=== PATIENT | female | born 1955 | race Caucasian/White ===

== ENCOUNTER → 2019-01-16 | Emergency (ER) | payer MEDICAID ==
[~2019-01-16] VITALS: Ht 152.4 cm; Wt 66.0 kg
[~2019-01-16] MED LIST: CEFTRIAXONE SODIUM 1 G/VIAL IM ONE; LIDOCAINE HCL 1% 20ML VIAL (Pyxis) INJ INFIL ONE; TETANUS, DIPHTHERIA, PERTUSSIS VAC/PF 0.5ML (>7YR OLD) IM ONE
[2019-01-16 08:29] VITALS: BP 160/62
== END ==
LOC: ER 08:30
DX: S40.862A Insect bite (nonvenomous) of left upper arm, initial encounter (principal); W57.XXXA Bitten or stung by nonvenomous insect and other nonvenomous arthropods, initial encounter; Y93.9 Activity, unspecified; Y92.9 Unspecified place or not applicable; Z86.19 Personal history of other infectious and parasitic diseases
CPT/HCPCS: 90471; 90715; 96372; 99283; J0696; J3490

== ENCOUNTER 2022-12-06 20:58 | Emergency (ER) | payer MEDICAID, OTHER ==
[~2022-12-06] VITALS: Ht 167.6 cm; Wt 74.0 kg
[2022-12-06 21:03] VITALS: BP 146/92; PULSE 80; RESP 16; TEMP 98.4; O2SAT 98
[2022-12-06 22:00] LABS: CHLORIDE 107 mEq/L (98-107)
== END 2022-12-06 22:40 | disposition home or self-care (01) ==
LOC: ER 20:58
DX: I10 Essential (primary) hypertension (principal)
CPT/HCPCS: 36415; 80053; 81025; 93005; 99284